=== PATIENT | female | born 1990 | race African-American/Black ===

== ENCOUNTER 2018-05-18 19:32 | Inpatient (IN) | payer OTHER ==
[2018-05-18] VITALS (20 sets, daily range): BP systolic 90–135; BP diastolic 52–95; PULSE 92–110; TEMP 97.7–97.9
[~2018-05-18] VITALS: Ht 162.6 cm; Wt 77.7 kg
[~2018-05-18 19:32] MED LIST: NO HOME MEDICATIONS; PERCOCET 500 MG1 TAB PO; [UNRECOGNIZED DRUG - OTHER]
[2018-05-18 20:25] LABS: BASO % 0.3 % (0.0-2.0); EOS % 0.2 % (0-4.0); GRAN # 10.8 (1.4-6.5); GRAN % 75.9 % (42.2-75.2); HEMOGLOBIN 11.8 g/dl (12.5-16.0); LYMPH # 2.3 (1.2-3.4); LYMPH % 15.9 % (20.0-51.0); MEAN CELL VOLUME 87 fl (80.0-100.0); MEAN CORPUSCULAR HEMOGLOBIN 30 pg (27.0-31.0); MEAN CORPUSCULAR HGB CONC 34 g/dl (33.0-37.0); MEAN PLATELET VOLUME 9.8 fl (7.4-10.4); MONO % 7.1 % (1.7-9.3); PLATELET COUNT 415 K/mm3 (130-400); REDCELL DISTRIBUTION WIDTH-CV 13.5 % (11.5-14.5)
[2018-05-18 20:27] LABS: HEMATOCRIT 34.7 % (37.0-47.0)
[2018-05-18 20:45] LABS: ALBUMIN 3.5 gm/dL (3.5-5.0); BILIRUBIN,TOTAL 0.2 mg/dL (0.0-1.0); CALCIUM 9.1 mg/dL (8.4-10.2); CREATININE, serum 0.5 mg/dL (0.52-1.25); POTASSIUM 3.6 mmol/L (3.4-5.0); TOTAL PROTEIN 7.2 gm/dL (6.4-8.2)
[2018-05-18 21:43] LABS: HIV 1/2 Antibodies Non-Reactive; HIV-1p24 Antigen Non-Reactive
[2018-05-19] VITALS (15 sets, daily range): BP systolic 94–138; BP diastolic 50–77; PULSE 81–96; TEMP 97.4–98.3
[2018-05-19 01:11] LABS: COLLECTION METHOD CATHETER
[2018-05-19 01:23] LABS: AMORPHOUS CRYSTAL Present /uL; MUCOUS Present /lpf; PH 7 (5-8); SQUAMOUS EPITHELIAL None Seen /hpf; URINE APPEARANCE Cloudy; URINE BACTERIA None Seen /hpf; URINE BILIRUBIN Negative (NEGATIVE); URINE BLOOD Negative (NEGATIVE); URINE COLOR Yellow; URINE GLUCOSE Negative (NEGATIVE); URINE KETONE Negative (NEGATIVE); URINE LEUKOCYTE ESTERASE Negative (NEGATIVE); URINE NITRATE Negative (NEGATIVE); URINE PROTEIN(semi-quant) Negative (NEGATIVE); URINE RBC 0-2 /hpf; URINE UROBILINOGEN Negative (NEGATIVE)
[2018-05-19 01:24] LABS: TRICYCLIC ANTIDEPRESS URINE NEGATIVE
[2018-05-19 08:49] LABS: HEMOGLOBIN 10.4 g/dl (12.5-16.0)
[2018-05-19 08:53] LABS: HEMATOCRIT 30.4 % (37.0-47.0)
[2018-05-19] MEDS ORDERED: MOTRIN 800800 MG/TAB PO (10:33)
[2018-05-19] MEDS ORDERED: PERCOCET 325 MG1 TA2 PO (10:33)
[2018-05-19 14:28] LABS: HEPATITIS B SURFACE ANTIGEN Negative (Negative)
[2018-05-20 09:15] VITALS: BP 120/86; PULSE 98; TEMP 97.8
[2018-05-20 16:00] VITALS: BP 130/77; PULSE 88; TEMP 98
[2018-05-20 20:00] VITALS: BP 120/62; PULSE 68; TEMP 98
[2018-05-21 04:11] VITALS: BP 122/82; PULSE 89; TEMP 98
[2018-05-21 07:30] VITALS: BP 97/78; PULSE 105; TEMP 97.9
[2018-05-21] MEDS ORDERED: CEPHALEXIN500 M1 PO (10:31)
[2018-05-22 00:30] LABS: RPR (VDRL) Non-reactive (())
== END 2018-05-21 19:25 | disposition home or self-care (01) | DRG 787 ==
LOC: LDRO 19:32 → OB 20:25 → LDR 20:25 → OB 05-19 03:55
PROVIDERS: Obstetrics & Gynecology
PROC: 10D00Z1 Extraction of Products of Conception, Low, Open Approach (ICD-10-PCS; principal; 2018-05-18)
DX: O42.913 Preterm premature rupture of membranes, unspecified as to length of time between rupture and onset of labor, third trimester (principal); O36.4XX0 Maternal care for intrauterine death, not applicable or unspecified; T76.21XA Adult sexual abuse, suspected, initial encounter; O99.334 Smoking (tobacco) complicating childbirth; O32.6XX0 Maternal care for compound presentation, not applicable or unspecified; Z37.3 Twins, one liveborn and one stillborn; O32.8XX2 Maternal care for other malpresentation of fetus, fetus 2; N75.0 Cyst of Bartholin's gland; Z3A.26 26 weeks gestation of pregnancy; O30.043 Twin pregnancy, dichorionic/diamniotic, third trimester; Z23 Encounter for immunization
CPT/HCPCS: J0330; J0690; J0702; J1885; J2270; J2370; J2540; J2590; J2704; J3010; J3475; J7120

== ENCOUNTER 2024-06-04 09:28 | Emergency (ER) | payer MEDICAID ==
[~2024-06-04] VITALS: Ht 162.6 cm; Wt 90.9 kg
[~2024-06-04 09:28] MED LIST changes: +CEPHALEXIN500 M1 PO; +MOTRIN 800800 MG/TAB PO; +PERCOCET 325 MG1 TA2 PO
[2024-06-04 09:31] VITALS: TEMP 98.5
[2024-06-04] MEDS ORDERED: fentaNYL 50 MCG/ML 2 ML VIAL IV ONE ×2 (10:15→13:15)
[2024-06-04 11:26] LABS: BASO # 0.1 K/mm3 (0.0-0.2); BASO % 0.5 % (0.0-2.0); EOS # 0.1 K/mm3 (0.0-0.7); EOS % 0.4 % (0.0-4.0); GRAN # 11.6 K/mm3 (1.4-6.5); HEMATOCRIT 37.1 % (37.0-47.0); HEMOGLOBIN 12.7 g/dl (12.5-16.0); LYMPH # 2.7 K/mm3 (1.2-3.4); LYMPH % 17.2 % (20.0-51.0); MEAN CELL VOLUME 87 fl (80.0-100.0); MEAN CORPUSCULAR HEMOGLOBIN 30 pg (27-31); MEAN CORPUSCULAR HGB CONC 34 g/dl (33.0-37.0); MEAN PLATELET VOLUME 8.9 fl (7.4-10.4); MONO # 1.2 K/mm3 (0.1-0.6); MONO % 7.5 % (1.7-9.3); PLATELET COUNT 447 K/mm3 (130-400); RED BLOOD COUNT 4.28 M/mm3 (4.10-5.30); REDCELL DISTRIBUTION WIDTH-CV 14.6 % (11.5-14.5)
[2024-06-04 11:43] LABS: ALBUMIN 3.7 g/dL (3.5-5.0); BILIRUBIN,TOTAL 0.3 mg/dL (0.2-1.2); CALCIUM 8.7 mg/dL (8.4-10.2); CREATININE, serum 0.68 mg/dL (0.57-1.11); POTASSIUM 3.8 mEq/L (3.5-4.5); TOTAL PROTEIN 7.7 g/dl (6.2-8.1)
[2024-06-04] MEDS ORDERED: Iohexol 300 - 100 ML VIAL IV ONE (12:11)
[2024-06-04] MEDS ORDERED: NS 100 ML IV SCH (12:12)
[2024-06-04 12:58] LABS: COLLECTION METHOD CLEAN CATCH
[2024-06-04 13:08] LABS: URINE APPEARANCE CLEAR (CLEAR/HAZY); URINE BLOOD 2+ (NEGATIVE); URINE COLOR YELLOW (YELLOW); URINE GLUCOSE NEGATIVE (NEGATIVE); URINE KETONE NEGATIVE (NEGATIVE); URINE NITRATE NEGATIVE (NEGATIVE); URINE PROTEIN(semi-quant) TRACE (NEGATIVE); URINE UROBILINOGEN 0.2 E.U/dL (0.2-1.0)
[2024-06-04 17:20] VITALS: BP 115/80; PULSE 79
== END 2024-06-04 17:30 | disposition short-term general hospital (02) ==
LOC: COL.ER 09:28
PROVIDERS: Family Medicine
DX: S32.401A Unspecified fracture of right acetabulum, initial encounter for closed fracture (principal); V89.2XXA Person injured in unspecified motor-vehicle accident, traffic, initial encounter; Y92.410 Unspecified street and highway as the place of occurrence of the external cause
CPT/HCPCS: J3010; Q9967